=== PATIENT | male | born 1950 | race Caucasian/White ===

== ENCOUNTER 2021-02-02 20:32 | Emergency (ER) | payer BC ==
--- NOTE | 2021-02-02 22:07 | EDM.PDOCBH ---
ED HPI GENERAL MEDICAL PROBLEM - General Chief Complaint: Neuro Symptoms/Deficits Stated Complaint: MENTAL EVAL Time Seen by Provider: 02/02/21 21:22 Source of Information: Reports: Patient, Family - History of Present Illness INITIAL COMMENTS - FREE TEXT/NARRATIVE: 70 you male present to the ER with his daughter. He is camping in the area and became fixated on going home. He has had multiple years of memory loss and was seen by his PCP a few years ago. Dx with anxiety and depression. Home function has continued to decrease with more bad days where he cannot find common things such as the garbage at his home. Does not know his . afebrile. generally healthy. - Related Data Allergies Allergy/AdvReac Type Severity Reaction Status Date / Time No Known Allergies Allergy Verified 02/02/21 21:29 Past Medical History HEENT History: Reports: Impaired Vision Gastrointestinal History: Reports: Diverticulosis Musculoskeletal History: Reports: Fracture Dermatologic History: Reports: Eczema - Past Surgical History GI Surgical History: Reports: Hernia Repair/Other Social & Family History - Tobacco Use Tobacco Use Status *Q: Never Tobacco User - Alcohol Use Days Per Week of Alcohol Use: 7 Number of Drinks Per Day: 1 Total Drinks Per Week: 7 - Recreational Drug Use Recreational Drug Use: No ED ROS GENERAL - Review of Systems Review Of Systems: See Below Constitutional: Denies: Fever, Chills, Fatigue Respiratory: Denies: Shortness of Breath, Wheezing Cardiovascular: Denies: Chest Pain GI/Abdominal: Denies: Abdominal Pain ED EXAM, BEHAVIORAL HEALTH - Physical Exam Exam: See Below Exam Limited By: Altered Mental Status (baseline, daughter helped with history) General Appearance: Alert, WD/WN, No Apparent Distress Respiratory/Chest: No Respiratory Distress Neurological: Alert, Disoriented to Person, Disoriented to Place, Disoriented to Time, Memory Loss Remote Events, Memory Loss Recent Events Skin Exam: Warm, Dry, Intact COURSE, BEHAVIORAL HEALTH COMP - Course Vital Signs: Last Vital Signs Temp 36.6 C 02/02/21 21:40 Pulse 79 02/02/21 21:40 Resp 16 02/02/21 21:40 BP 140/84 02/02/21 21:40 Pulse Ox 94 L 02/02/21 21:40 Orders, Labs, Meds: Active Orders 24 hr Category Date Time Status UA W/MICROSCOPIC [URIN] Stat Lab 02/02/21 21:57 Ordered Departure - Departure Time of Disposition: 22:12 Disposition: Home, Self-Care 01 Condition: Good Clinical Impression: Dementia Qualifiers: Dementia type: Alzheimer's Alzheimer's disease onset: early-onset Dementia behavioral disturbance: with behavioral disturbance Qualified Code(s): G30.0 - Alzheimer's disease with early onset; F02.81 - Dementia in other diseases classified elsewhere with behavioral disturbance - Discharge Information *PRESCRIPTION DRUG MONITORING PROGRAM REVIEWED*: Not Applicable *COPY OF PRESCRIPTION DRUG MONITORING REPORT IN PATIENT BRETT: Not Applicable Instructions: Dementia, [id number] Referrals: PCP,None [Primary Care Provider] - Additional Instructions: Follow-up with your primary care provider regarding continued care. This is the group I was telling you about based out of [place] but covers all [facility] and our supporting partners are on a mission to improve access to quality dementia care in [facility]. We believe that collaborating with a patient, their family and their dementia clinician can slow progression of dementia symptoms leading to more life to live. We start with a thorough dementia risk assessment and evaluation in our office, then formulate a diagnosis and management plan. A patients referring primary care or specialty clinician remains in charge of their care, but we partner with them to provide a more thorough and successful management. Through personalized recommendations for diet, exercise, sleep, relaxation, personal connection, health habits, and therapeutics can be effective in slowing progression. Together, we are ending the fear of dementia. [email or web address] Book that I recommended for family is Still Padmini by Mary Contreras Sepsis Event Note (ED) - Evaluation Sepsis Screening Result: No Definite Risk - Focused Exam Vital Signs: Vital Signs Temp Pulse Resp BP Pulse Ox 02/02/21 21:40 36.6 C 79 16 140/84 94 L - My Orders Last 24 Hours: My Active Orders 02/02/21 21:57 UA W/MICROSCOPIC [URIN] Stat - Assessment/Plan Last 24 Hours: My Active Orders 02/02/21 21:57 UA W/MICROSCOPIC [URIN] Stat
== END 2021-02-02 22:25 | disposition home or self-care (01) ==
LOC: JP.ED 20:32
DX: G30.0 Alzheimer's disease with early onset (principal); F02.81 Dementia in other diseases classified elsewhere, unspecified severity, with behavioral disturbance
CPT/HCPCS: 99283